=== PATIENT | male | born 1970 | race Two or more races ===

== ENCOUNTER 2019-06-23 15:05 | Emergency (ER) | payer SELFPAY ==
[~2019-06-23] VITALS: Ht 180.3 cm; Wt 122.5 kg
[~2019-06-23 15:05] MED LIST: CALCIUM CHLOR(10%) 100MG/ML 10ML SYRINGE IV ONE; EPINEPHrine HCL 1 MG/10 ML SYRG IV ONE; SODIUM BICARBONATE 8.4% INJ 50ML SYRINGE IV ONE
[2019-06-23] MEDS ORDERED: SODIUM BICARBONATE 8.4% INJ 50ML SYRINGE ONE (15:15)
== END 2019-06-23 19:04 ==
LOC: ER 15:05
DX: I46.9 Cardiac arrest, cause unspecified (principal); E11.9 Type 2 diabetes mellitus without complications
CPT/HCPCS: 92950; 99285; J0171